=== PATIENT | male | born 1950 | race Caucasian/White ===

== ENCOUNTER 2025-04-05 06:18 | Day surgery (SDC) | payer MEDICARE, OTHER, SELFPAY ==
[2025-04-05 07:18] LABS: Glucose - Point of Care 127 mg/dl (70-99)
== END 2025-04-05 09:21 | disposition home or self-care (01) ==
LOC: GI 06:18
PROVIDERS: ATTENDING PHYSICIAN Surgery
DX: Z12.11 Encounter for screening for malignant neoplasm of colon (principal); K57.30 Diverticulosis of large intestine without perforation or abscess without bleeding; D12.0 Benign neoplasm of cecum; D12.4 Benign neoplasm of descending colon; Z86.0100 Personal history of colon polyps, unspecified; Z98.0 Intestinal bypass and anastomosis status
CPT/HCPCS: 45385; 45381; 45380; 82962; 88305

== ENCOUNTER 2025-04-19 14:08 | Observation (INO) | payer MEDICARE, OTHER, SELFPAY ==
[2025-04-19 11:42] VITALS: BP 157/79
[2025-04-19 11:58] LABS: Hematocrit 37.9 % (39.0-52.0); Hemoglobin 12.6 g/dL (13.0-18.0); Mean Corp Hgb Conc. 33.2 g/dL (33.0-37.0); Mean Corpuscular Volume 90.9 fL (80.0-94.0); Nucleated Red Blood Cells % 0 % (-); Platelet Count 217 10^3/uL (130-400); Red Cell Dist. Width 13.0 % (11.5-14.5)
[2025-04-19 12:05] LABS: INR 0.96; PT 13.3 Sec (11.4-14.6)
[2025-04-19 12:12] LABS: ALT (SGPT) 26 U/L (0-50); AST (SGOT) 21 U/L (17-59); Albumin 4.7 g/dl (3.5-5.0); Alkaline Phosphatase 45 U/L (38-126); Blood Urea Nitrogen 33 mg/dl (9-20); Calcium 9.6 mg/dl (8.4-10.2); Carbon Dioxide 27 mmol/L (22-30); Chloride 107 mmol/L (98-107); Glucose 127 mg/dl (70-99); Potassium 4.8 mmol/L (3.5-5.1); Sodium 141 mmol/L (135-145); Total Protein 7.0 g/dl (6.3-8.2); eGFR > 60.00
--- NOTE | 2025-04-19 12:36 | ED.GENMED ---
History of Present Illness
<Alma Rosa Trammell PA-C - Last Filed: 04/19/25 23:17>
General
Chief Complaint: Rectal Bleeding
Source: patient
Exam Limitations: none
Time Seen by Provider: 04/19/25 12:13
Nursing documentation reviewed up to this point in time: agreed with
History of Present Illness
History of Present Illness:
Patient is a 75-year-old male with history hypertension, hyperlipidemia, diabetes who presents to the emergency department for evaluation of rectal bleeding. Patient reports a few episodes of red/brown stool with bright red blood in toilet bowl
since last night. He denies any abdominal pain/cramping. He denies any lightheadedness, dizziness, weakness, or shortness of breath.
Of note�patient is currently 2 weeks s/p colonoscopy with multiple polyps removed. He contacted his GI doctor who performed colonoscopy, Dr. Kahn and was seen in office this morning. Given evidence of bleeding per rectum on antiplatelet
agents�she was referred to the emergency department for admission.
Patient states he last took his prasugrel this morning. He also takes a baby aspirin in the evening.
Past History
<Alma Rosa Trammell PA-C - Last Filed: 04/19/25 23:17>
Past History
ED Past Medical History: CAD, HTN and Hypercholesterolemia
Social History
Tobacco: Former smoker
Alcohol: None
Drug: None
Personal:
Review of Systems
<Alma Rosa Trammell PA-C - Last Filed: 04/19/25 23:17>
Review of Systems
Allergies reviewed?: Yes
All Other Systems: ROS reviewed and negative except as documented in HPI and ROS
Phy Exam
<Alma Rosa Trammell PA-C - Last Filed: 04/19/25 23:17>
Physical Exam
Physical Exam:
Vitals: Mildly hypertensive, otherwise vital sign stable. Afebrile
General: Patient is well appearing, no acute distress
Skin: Warm and dry, no rashes or lesions
Head: Normocephalic, atraumatic
Eyes: Sclera nonicteric.
Throat: Protecting airway
Neck: Normal ROM, no cervical spine tenderness, no meningismus
Cardiac: Regular rate and rhythm, no murmurs.
Pulm: Normal respiratory effort, no wheezes, rales, rhonchi heard on exam
Abdomen: Abdomen soft and nontender. No rebound or guarding
Rectal: No visualized external hemorrhoids. No stool in vault with minimal bright red blood present.
Extremities: No evidence of cyanosis or edema
Neuro: AAOx3. Grossly intact.
Psychiatric: Normal affect.
Course
<Alma Rosa Trammell PA-C - Last Filed: 04/19/25 23:17>
Orders/Labs/Results
Orders:
Orders
04/19/25 11:48
Type+Screen Urgent
Complete Blood Count/With Diff Urgent
Comprehensive Metabolic Panel Urgent
PT/INR [Prothrombin Time] Urgent
04/19/25 13:46
Admit/Transfer Patient As Directed
Co-Sign Provider:
Level of Care: Observation services
Assign to:: Medical/Surgical
Physician / Group: Marlyn Jeffers
Diagnosis: GI bleed
PRN Pain Medication Management As Directed
May give lesser potent ordered pain med per pt: Yes
preference::
Protocol:: Medication orders for pain may be administered in a
manner that supports deferring to patient preference
when the pt is:
- Requesting an ordered lesser potent pain medication.
Least to most potent pain medications are defined
as: acetaminophen < NSAID < tramadol < opioids
(morphine, oxycodone, hydromorphone).
- Requesting a lesser dose of the same medication IF
ORDERED.
- Requesting a less intrusive route of administration
if both routes are prescribed by the provider (PO <
IV).
04/19/25 13:47
Code Status As Directed
Resuscitation Status: Full Code
04/19/25 Dinner
Clear Liquid
At Your Request: Limited Participation
Does patient need a safe tray?: No
04/19/25 15:25
Dextrose 50%-Water [Dextrose 50% Syringe] 12.5 grams IV [id number] PRN
Glucagon [GlucaGen] 1 mg IM PRN PRN
Lorazepam [Ativan] 1 mg PO BIDPRN PRN anxiety
04/19/25 15:25
ColoRectal Surgery Consult Routine
Consulting Provider: Familia Kahn
Was physician already notified: Yes
Activity As Directed
Activity Level: Ambulate
Bedside Glucose Monitoring As Directed
Frequency: AC&HS
Additional Instructions:: Change to q6h if pt on TPN, tube feeding or not eating
INT (Intravenous Needle Therapy) As Directed
Comment: Place 2 IV catheters of the largest bore possible until stable
Orthostatic Vital Signs As Directed
Orthostatic VS Frequency: Now
Comment: then every four hours for twenty-four hours
Pneumatic Compression Sleeves As Directed
Type: Knee high
Vital Signs As Directed
Frequency: Per unit guidelines
Weight As Directed
Frequency: Once
Comment: on admission
Pulse Ox/spot Check [RESP] Routine
Quantity: 1
DX Deep Vein Thrombosis Video Routine
04/19/25 16:30
Insulin Aspart Corrective Low [Novolog Flexpen-Low Resistance] See Protocol SC AC
04/19/25 18:00
Atorvastatin [Lipitor] 40 mg PO QPM
Ferrous Sulfate [Feosol] 325 mg PO QPM
Lisinopril [Zestril] 2.5 mg PO QPM
04/19/25 20:00
Clobetasol Propionate [Clobetasol Propionate 0.05% Cream] See Dose Instructions TOPICAL BID
04/19/25 22:00
Melatonin 5 mg PO HS
04/20/25 06:00
Complete Blood Count/No Diff IN AM
Glycohemoglobin (HgbA1c) IN AM
04/20/25 08:00
Atenolol [Tenormin] 50 mg PO DAILY
Pantoprazole [Protonix] 20 mg PO DAILY
Abnormal Lab Results
04/19/25
11:48
RBC 4.17 L 10^6/uL
(4.70-6.10)
Hgb 12.6 L g/dL
(13.0-18.0)
Hct 37.9 L %
(39.0-52.0)
Lymphocytes % 20.0 L %
(20.5-51.1)
BUN 33 H mg/dl
(9-20)
Glucose 127 H mg/dl
(70-99)
04/19/25 11:48
04/19/25 11:48
Vital Signs
Initial and Last Documented VS:
Initial Vital Signs
Temp Pulse Resp BP Pulse Ox
97.9 F 78 16 157/79 98
04/19/25 11:42 04/19/25 11:42 04/19/25 11:42 04/19/25 11:42 04/19/25 11:42
Last Documented Vital Signs
Temp Pulse Resp BP Pulse Ox
98.0 F 70 16 153/76 100
04/19/25 16:28 04/19/25 16:28 04/19/25 16:28 04/19/25 16:28 04/19/25 16:44
<Juan Stokes MD - Last Filed: 04/19/25 13:06>
Orders/Labs/Results
Orders:
Orders
04/19/25 11:48
Type+Screen Urgent
Complete Blood Count/With Diff Urgent
Comprehensive Metabolic Panel Urgent
PT/INR [Prothrombin Time] Urgent
04/19/25 13:46
Admit/Transfer Patient As Directed
Co-Sign Provider:
Level of Care: Observation services
Assign to:: Medical/Surgical
Physician / Group: Marlyn Jeffers
Diagnosis: GI bleed
PRN Pain Medication Management As Directed
May give lesser potent ordered pain med per pt: Yes
preference::
Protocol:: Medication orders for pain may be administered in a
manner that supports deferring to patient preference
when the pt is:
- Requesting an ordered lesser potent pain medication.
Least to most potent pain medications are defined
as: acetaminophen < NSAID < tramadol < opioids
(morphine, oxycodone, hydromorphone).
- Requesting a lesser dose of the same medication IF
ORDERED.
- Requesting a less intrusive route of administration
if both routes are prescribed by the provider (PO <
IV).
04/19/25 13:47
Code Status As Directed
Resuscitation Status: Full Code
04/19/25 Dinner
Clear Liquid
At Your Request: Limited Participation
Does patient need a safe tray?: No
04/19/25 15:25
Dextrose 50%-Water [Dextrose 50% Syringe] 12.5 grams IV [id number] PRN
Glucagon [GlucaGen] 1 mg IM PRN PRN
Lorazepam [Ativan] 1 mg PO BIDPRN PRN anxiety
04/19/25 15:25
ColoRectal Surgery Consult Routine
Consulting Provider: Familia Kahn
Was physician already notified: Yes
Activity As Directed
Activity Level: Ambulate
Bedside Glucose Monitoring As Directed
Frequency: AC&HS
Additional Instructions:: Change to q6h if pt on TPN, tube feeding or not eating
INT (Intravenous Needle Therapy) As Directed
Comment: Place 2 IV catheters of the largest bore possible until stable
Orthostatic Vital Signs As Directed
Orthostatic VS Frequency: Now
Comment: then every four hours for twenty-four hours
Pneumatic Compression Sleeves As Directed
Type: Knee high
Vital Signs As Directed
Frequency: Per unit guidelines
Weight As Directed
Frequency: Once
Comment: on admission
Pulse Ox/spot Check [RESP] Routine
Quantity: 1
DX Deep Vein Thrombosis Video Routine
04/19/25 16:30
Insulin Aspart Corrective Low [Novolog Flexpen-Low Resistance] See Protocol SC AC
04/19/25 18:00
Atorvastatin [Lipitor] 40 mg PO QPM
Ferrous Sulfate [Feosol] 325 mg PO QPM
Lisinopril [Zestril] 2.5 mg PO QPM
04/19/25 20:00
Clobetasol Propionate [Clobetasol Propionate 0.05% Cream] See Dose Instructions TOPICAL BID
04/19/25 22:00
Melatonin 5 mg PO HS
04/20/25 06:00
Complete Blood Count/No Diff IN AM
Glycohemoglobin (HgbA1c) IN AM
04/20/25 08:00
Atenolol [Tenormin] 50 mg PO DAILY
Pantoprazole [Protonix] 20 mg PO DAILY
Abnormal Lab Results
04/19/25
11:48
RBC 4.17 L 10^6/uL
(4.70-6.10)
Hgb 12.6 L g/dL
(13.0-18.0)
Hct 37.9 L %
(39.0-52.0)
Lymphocytes % 20.0 L %
(20.5-51.1)
BUN 33 H mg/dl
(9-20)
Glucose 127 H mg/dl
(70-99)
04/19/25 11:48
04/19/25 11:48
Vital Signs
Initial and Last Documented VS:
Initial Vital Signs
Temp Pulse Resp BP Pulse Ox
97.9 F 78 16 157/79 98
04/19/25 11:42 04/19/25 11:42 04/19/25 11:42 04/19/25 11:42 04/19/25 11:42
Last Documented Vital Signs
Temp Pulse Resp BP Pulse Ox
98.0 F 70 16 153/76 100
04/19/25 16:28 04/19/25 16:28 04/19/25 16:28 04/19/25 16:28 04/19/25 16:44
<Alma Rosa Trammell PA-C - Last Filed: 04/19/25 23:17>
MDM/Problems Addressed
Differential Diagnosis Includes:
Not limited to: Postpolypectomy bleeding, diverticular bleeding, anal fissure, internal hemorrhoid, anemia, etc.
MDM/Problems Addressed:
75-year-old male with history CAD on prasugrel approximately 2 weeks s/p colonoscopy with polypectomy presenting with rectal bleeding. No associated abdominal or rectal pain, lightheadedness, fatigue, shortness of breath. He is hemodynamically
stable on arrival and afebrile. On exam, patient is well appearing and non-toxic. He�s alert and oriented without any focal neurologic deficits. Abdomen benign. Rectal exam does reveal very little bright red blood in vault without any obvious
external hemorrhoids.
Lab work obtained prior to my evaluation reveal a stable hemoglobin of 12.6.
Bleeding may be secondary to recent polypectomy. Possible diverticular bleeding or internal hemorrhoids. While patient has minimal amount of bleeding on exam currently and his hemodynamically stable, given he is on prasugrel and aspirin � will admit
for a hemoglobin trending and further monitoring.
I did discuss with colorectal surgeon, doctor Criss � will hold on CTA at this time.
Blood consent signed into chart, however, hemoglobin currently over threshold for transfusion.
Patient accepted to hospitalist service in stable condition for further management
Chronic conditions affecting care:
CAD on prasugrel, hypertension
Acute Exacerbation and/or Progression of Chronic Illness:
Acutely hypertensive
<Alma Rosa Trammell PA-C - Last Filed: 04/19/25 23:17>
*Pulse Oximetry
SaO2: 98
Oxygen Mode of Delivery: Room air
Patient hypoxic: no
*EKG
Interpreted by ED Provider?: NA
*Investigative Research Specialist Interpretation
Rate: Investigative Research Specialist- N/A
*Critical Care Note
Total Time (30-74mins, 75-104mins- exclusive of procedures): Not Applicable
<Alma Rosa Trammell PA-C - Last Filed: 04/19/25 23:17>
Patient Management
Discussion with other providers: Hospitalist and On Call (Case discussed with colorectal surgeon)
ED Attending Note
<Alma Rosa Trammell PA-C - Last Filed: 04/19/25 23:17>
-
Portions of this chart may have been created with voice recognition software.� Occasional wrong word or��sound alike� substitutions may have occurred due to the inherent limitations of voice recognition software.
<Juan Stokes MD - Last Filed: 04/19/25 13:06>
ED Attending Note
Patient seen and examined by attending physician: Yes
ED Attending Note:
I have seen and evaluated the patient with a [id number] encounter. I have spoken to the advance practicer provider and involved in the medical history, the physical exam, medical decision making.
Evaluation and management service: agree unless noted differently below.
Results interpretation: agree unless noted differently below.
Focused HPI: 75-year-old male with past medical history as noted presents to the ER for evaluation of rectal bleeding. Patient notably had colonoscopy [address] Kahn and had polyps resected. He says he had been having normal bowel
movements until today he noticed stool mixed with dark red blood x 2 episodes. Went to see GI doctor and was referred to the ER. He is on prasugrel reports last dose this morning.
Physical exam: Awake and alert not in distress. Hypertensive but otherwise normal vitals. Abdomen nontender. PA performed rectal exam�Hemoccult positive.
Medical Decision Makin-year-old male who is on prasugrel presents with rectal bleeding 2 weeks out from colonoscopy and polyp resection. He is hemodynamically stable. His hemoglobin is 12.6 stable (actually slightly higher than prior). Plan
to hold blood thinners, PA discussed with colorectal surgeon will admit for serial hemoglobins, clinically monitor. Hold on imaging at this point. PA discussed with hospitalist for admission.
Discharge Plan
Departure
Patient Disposition: Admit
Date of Disposition: 04/19/25
Time of Disposition: 13:03
Presentation/result/management discussed w/ accepting MD/DO: Hospitalist
Patient with high blood pressure during this ER visit?: Yes
Discharge Problem:
Rectal bleeding
Interventions
Interventions:
*Risk Screen - Suicide Last Done: 04/19/25 15:47
*General Assessment Last Done: 04/19/25 11:42
*Neglect/Abuse Screening Last Done: 04/19/25 11:42
*ED- Fall Risk Assessment Last Done: 04/19/25 12:22
*ED COVID-19 Vaccine History Last Done: 04/19/25 15:47
*ED Influenza Vaccine History Last Done: 04/19/25 11:44
*Nursing Disposition Last Done: 04/19/25 15:20
QQ-Suqouv-Mpjvdplgpi Assessment Last Done: 04/19/25 12:22
ED- Cardiac Assessment Last Done: 04/19/25 12:22
ED- Pulmonary Assessment Last Done: 04/19/25 12:22
Discharge Date and Time
Discharge Date/Time: 04/19/25 15:21
--- NOTE | 2025-04-19 13:12 | HPS.HSE ---
Addendum entered and electronically signed by Marlyn Jeffers MD 04/19/25 14:37:
This is an addendum to H&P written by Marichuy Clements on 04/19/2025. �Patient seen and examined independently with ASSET ANALYST.
75-year-old male past medical history of Meckel's diverticulum, diverticulitis with bowel perf s/p bowel resection, left kidney nodule, CAD status post stent 1 year ago, hypercholesteremia, GERD, hypertension, former smoker, presenting for maroon
colored rectal bleeding last night and bright colored bleeding today. �No abdominal pain.
Underwent colonoscopy 2 weeks ago with multiple polyps removed by Dr. Kahn.
Vital signs unremarkable.
Labs unremarkable. �Hemoglobin 12.6.
Patient with rectal bleeding after colonoscopy 2 weeks ago likely post polypectomy bleeding. �Hold ASA/ prasugrel. �Colorectal surgery consulted. �Consider CTA angiogram abdomen pelvis if persistent bleeding.
Original Note:
Family Physician
-
Family Physician: SHANKAR CARMEN PA-C
Chief Complaint
-
bloody stools
History of Present Illness
Patient is a 75-year-old male with past medical history significant for hypertension, hyperlipidemia, diabetes, CAD, GERD and diverticulitis who presented to [facility] ED for evaluation of bloody stools that started this morning. Patient had colonoscopy
with Dr. Kahn, two weeks ago with polyp removal and clip placement. Patient stated that this morning he had a maroon loose bowel movement. He reports taking himself to Dr. Kahn's office following the episode of maroon stools and he was then
referred to ED for evaluation and workup. Patient states he had a second episode after arriving here at hospital that was less maroon than previous but does note some brighter red blood with this episode. He denies any dizziness, shortness of breath
or palpitations.
Medical History
Past Medical History
Past Medical History: Reports Other
Additional Past Medical History:
hypertension
hyperlipidemia
diabetes
CAD
GERD
diverticulitis
Past Surgical History: Reports Other
Additional Past Surgical History:
sigmoidectomy 2013
cardiac cath with stent
reanastomosis sigmoid colon 09/2022
Social History
Tobacco: Former Smoker
Alcohol: None
Drug: None
Personal:
Living: With Family
Employment: Retired
Family History
Family History: Other (Mother: breast cancer () Father: lung cancer, CAD, IDDM () )
Allergies / Home Medications
Allergies reflects when Allergies were last updated in [facility].
Home Medications with original date entered in [facility]
Allergy/Medication List:
Allergies
Allergy/AdvReac Type Severity Reaction Status Date / Time
No Known Allergies Allergy Verified 04/19/25 11:45
Home Medications
atenolol 50 mg tablet 50 mg PO DAILY 10/13/13
lorazepam 1 mg tablet 1 mg PO BIDPRN PRN anxiety 10/13/13
ascorbic acid (vitamin C) 500 mg tablet (Vitamin C) 500 mg PO QPM 04/19/25
aspirin 81 mg chewable tablet 81 mg PO QPM 04/19/25
atorvastatin 40 mg tablet 40 mg PO QPM 04/19/25
clobetasol 0.05 % topical cream 1 applic topical BID eczema patches 04/19/25
ferrous sulfate 325 mg (65 mg iron) tablet (iron) 325 mg PO QPM 04/19/25
lisinopril 2.5 mg tablet 2.5 mg PO QPM 04/19/25
melatonin 5 mg tablet 5 mg PO HS Sleep 04/19/25
metformin 500 mg tablet,extended release 24 hr 500 mg PO BID@0800,1700 04/19/25
multivitamin 1 tab PO DAILY 04/19/25
omega 2-zfz-eam-fish oil 900 mg-1,400 mg capsule,delayed release 1 cap PO BID 04/19/25
pantoprazole 20 mg tablet,delayed release 20 mg PO DAILY 04/19/25
prasugrel HCl 5 mg tablet 5 mg PO DAILY 04/19/25
Review of Systems
-
History Source: Patient
Constitutional: Denies Fever or Chills
EENT: Denies Sore Throat
Respiratory: Denies Cough, Hemoptysis or Trouble Breathing
Cardiac: Denies Chest Pain, Diaphoresis, Palpitations or Syncope
Abdomen/GI: Reports Diarrhea and Bloody Stools; Denies Abdominal Pain, Nausea or Vomiting
: Denies Dysuria, Frequency or Urgency
Musculoskeletal: Denies Joint Pain
Skin: Denies Rash
Neurological: Denies Dizzy, Headache, Weakness or Numbness
Physical Exam
Vital Signs
Vital Signs
Temp Pulse Resp BP Pulse Ox
97.9 F 78 16 157/79 98
04/19/25 11:42 04/19/25 11:42 04/19/25 11:42 04/19/25 11:42 04/19/25 12:36
Physical Exam
General: Well Developed, Well Nourished, No Apparent Distress, Comfortable and Conversant
HEENT: NormoCephalic, Moist mucous membranes, PERRLA, Nose Appears Normal and Ears Appear Normal
Respiratory: Clear; No Wheezes, Rales, Rhonchi or Non Labored Respirations
Cardiac: S1/S2 and Regular Rhythm; No Murmur, Rub, Gallop or Peripheral Edema
GI: Soft, Non Tender, Non Distended and Normal Bowel Sounds
Musculoskeletal: No Clubbing, No Cyanosis and No Edema
Skin: Warm and IV/Catheter Site
Neuro: Awake and AO x 3
Psych: Calm and Intact Judgment/Insight
Laboratory Results
-
04/19/25 11:48
04/19/25 11:48
Laboratory Results
PT 13.3 Sec (11.4-14.6) 04/19/25 11:48
INR 0.96 04/19/25 11:48
Total Bilirubin 0.5 mg/dl (0.2-1.3) 04/19/25 11:48
AST 21 U/L (17-59) 04/19/25 11:48
ALT 26 U/L (0-50) 04/19/25 11:48
Alkaline Phosphatase 45 U/L (38-126) 04/19/25 11:48
Data Reviewed
-
Lab Data: Labs Reviewed by me (hgb 12.6, hct 37.9 )
Impression/Plan
-
IMPRESSION/PLAN:
#bloody stools
reports maroon loose stool x2 today, recent colonoscopy with Dr. Kahn 2 weeks with polypectomy and clip placement
hgb 12.6, hct 37.9
Hemoccult positive per ED note
blood consent obtained by ED, scanned to chart
- Admit to med/surg for observation
- Consult Colorectal
- trend H/H
- clear liquid diet
- hold aspirin and prasugrel
#hypertension
- continue atenolol, lisinopril
#hyperlipidemia
- continue atorvastatin
#diabetes
- AccuCheck
- AC & HS
- hold metformin while acutely ill
#CAD
- hold aspirin and prasugrel
#GERD
- continue pantoprazole
#anemia
- continue ferrous sulfate
#anxiety
- continue lorazepam
#diverticulitis
s/p sigmoidectomy
Code status: full code
DVT prophylaxis: SCDs
[2025-04-19 14:15] VITALS: BP 159/66
--- NOTE | 2025-04-19 14:18 | CM ---
chart reviewed [place] reviewed with patient
Met with patient at ED bedside
Lives with in a split home 5 [address] and 6 steps to bathroom
Independent with ADLs and ambulation
Drives
no DME
PCP Dr. Joasfat Angulo
RX plan yes
Pharmacy [facility]
no hx of VN nor SNF
DCP is to go home
can drive him home
CM to follow up with any dcp needs
--- NOTE | 2025-04-19 15:43 | CON.CRS ---
Consultation
-
Date/Time Consultation Requested: 04/19/2025
Date/Time Consultation Performed: 04/19/2025
Performing Provider: Criss
Reason for Consultation: Melena
Medical History
-
Chief Complaint: Dark stools
History of Present Illness:
75-year-old male who is now 2 weeks on chronic ASA and Effient for CAD/stents status post colonoscopy by me with removal of a number of polyps. Largest was 1.2 cm in the cecum and was removed and clipped. 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 5
other small polyps were noted and these were removed and came back tubular adenoma. A colorectal anastomosis from her prior sigmoidectomy was noted to be satisfactory. Plan was to repeat in 3 years. For the last 48 hours or so he has noticed dark
BMs and loose BMs. He can do my office today with the same concern and on SHANTELLE had melena with flecks of red. I recommended evaluation in the ER and potential observation in the hospital. Of note, he denied abdominal pain nausea vomiting fevers or
chills.
On evaluation in the ER he was afebrile and nontachycardic with reasonable BP. Blood work with hemoglobin 12.6. No imaging has been performed. Electrolytes and LFTs are reasonable.
Past Medical History
Past Medical History: CAD, GERD, HTN, Hypercholesterolemia and Other (Skin cancer)
Past Surgical History: Other (Coronary stent; urgent sigmoidectomy with Meckel's diverticulectomy in 2013)
Social History
Tobacco: Former Smoker
Alcohol: None
Personal:
Employment: Retired
Family History
Family History: Reviewed & Noncontributory
Allergies / Home Medications
Allergy/AdvReac Type Severity Reaction Status Date / Time
No Known Allergies Allergy Verified 04/19/25 11:45
�Medication �Instructions �Recorded �Confirmed �Type
atenolol 50 mg tablet 50 mg PO DAILY Blood Pressure 10/13/13 04/19/25 History
lorazepam 1 mg tablet 1 mg PO BIDPRN PRN anxiety 10/13/13 04/19/25 History
ascorbic acid (vitamin C) 500 mg 500 mg PO QPM Supplement 04/19/25 04/19/25 History
tablet (Vitamin C)
aspirin 81 mg chewable tablet 81 mg PO QPM Blood Clot 04/19/25 04/19/25 History
Prevention/Tx
atorvastatin 40 mg tablet 40 mg PO QPM High Cholesterol 04/19/25 04/19/25 History
clobetasol 0.05 % topical cream 1 applic topical BID eczema 04/19/25 04/19/25 History
patches
ferrous sulfate 325 mg (65 mg 325 mg PO QPM Supplement 04/19/25 04/19/25 History
iron) tablet (iron)
lisinopril 2.5 mg tablet 2.5 mg PO QPM Blood Pressure 04/19/25 04/19/25 History
melatonin 5 mg tablet 5 mg PO HS Sleep 04/19/25 04/19/25 History
metformin 500 mg tablet,extended 500 mg PO BID@0800,1700 Diabetes 04/19/25 04/19/25 History
release 24 hr
multivitamin 1 tab PO DAILY Supplement 04/19/25 04/19/25 History
omega 5-osr-lol-fish oil 900 1 cap PO BID Supplement 04/19/25 04/19/25 History
mg-1,400 mg capsule,delayed release
pantoprazole 20 mg tablet,delayed 20 mg PO DAILY Gastrointestinal 04/19/25 04/19/25 History
release Issue
prasugrel HCl 5 mg tablet 5 mg PO DAILY Blood Clot 04/19/25 04/19/25 History
Prevention/Tx
Review of Systems
-
A 10 point review of systems was completed, and was negative except as per HPI.
Physical Exam
Vital Signs
Temp 97.9 F 04/19/25 11:42
Pulse 77 04/19/25 14:15
Resp Rate 16 04/19/25 14:15
Blood pressure 159/66 04/19/25 14:15
SaO2 98 04/19/25 14:15
04/18/25 04/19/25 04/20/25
06:59 06:59 06:59
Actual Weight 74.843 kg
Lab Results / Allergies
04/19/25 11:48
WBC 8.2 10^3/uL (4.8-10.8) 04/19/25 11:48
Hgb 12.6 g/dL (13.0-18.0) L 04/19/25 11:48
Hct 37.9 % (39.0-52.0) L 04/19/25 11:48
Plt Count 217 10^3/uL (130-400) 04/19/25 11:48
Abs Immat Gran (auto) 0.0 10^3/uL (0-0.05) 04/19/25 11:48
Neutrophils % 70.0 % (42.2-75.2) 04/19/25 11:48
Allergy/AdvReac Type Severity Reaction Status Date / Time
No Known Allergies Allergy Verified 04/19/25 11:45
Physical Exam
General: Well Developed
HEENT: Normocephalic
Respiratory: Clear
Cardiac: S1/S2
GI: Soft, Non Tender and Non Distended
Rectal: Other (Deferred as in office earlier had dark loose stool with flecks of blood on SHANTELLE)
Skin: Warm
Neuro: AO x 3
Psych: Calm
Data Reviewed
-
Labs: Labs Reviewed by me and Discussed with Patient
Assessment / Plan
-
75-year-old male with probable post polypectomy bleed exacerbated by ASA and Effient. Agree with admission to the hospital for observation, clear liquid diet, serial hemoglobins, and holding the blood thinners. Hold on imaging or interventions at
this point in time. Consideration for CT angio versus colonoscopy if bleeding persists.
[2025-04-19 16:02] VITALS: BMI 24.0
[2025-04-19 16:22] VITALS: BP 153/76; BP 160/78; BP 164/77; PULSE 70; PULSE 73; PULSE 77
[2025-04-19 16:28] VITALS: BP 153/76
[2025-04-19] MEDS: LIPITOR 40 MG PO (17:12)
[2025-04-19] MEDS: ZESTRIL 2.5 MG PO (17:12)
[2025-04-19 17:17] LABS: Glucose - Point of Care 134 mg/dl (70-99)
--- NOTE | 2025-04-19 17:31 | PTCARENOTE ---
Received pt from ED, pt ambulatory to bed with no assistance. Orthos done, see documentation. Pt requested blood draw be pushed back to 17:30-18:00 to try to cluster care and promote sleep. Answered all pt's questions. Educated to notify staff if pt
has to have a BM. Pt oriented to room, warm blankets supplied, SCDs in place. No further complaints at this time, call nair within reach.
[2025-04-19 17:47] LABS: Hematocrit 35.1 % (39.0-52.0); Hemoglobin 11.8 g/dL (13.0-18.0)
--- NOTE | 2025-04-19 17:48 | VATNOTE ---
reviewed MD order for 2 large bore IVs until stable. While discussing this with patient, he requested to hold off on placing an additional IV until trending hemoglobin can be confirmed. Most recent hgb 12.6, discussed with patient the importance of
IV establishment in preparation for any potential blood transfusions given diagnosis of GI bleed. Patient verbalized understanding of this importance, and still requested to wait for additional IV placement. MD Jeffers made aware.
[2025-04-19 19:00] VITALS: BP 149/75; BP 159/75; BP 171/82; PULSE 69; PULSE 73; PULSE 85
[2025-04-19] MEDS: MELATONIN 5 MG PO (20:58)
[2025-04-19] MEDS: CLOBETASOL PROPIONATE 0.05% CREAM 1 APPLIC TOPICAL (21:00)
[2025-04-19 21:14] LABS: Glucose - Point of Care 124 mg/dl (70-99)
[2025-04-19 23:00] VITALS: BP 150/81; BP 152/86; BP 176/86; PULSE 74; PULSE 75; PULSE 85
[2025-04-19 23:55] LABS: Hematocrit 34.8 % (39.0-52.0); Hemoglobin 11.8 g/dL (13.0-18.0)
[2025-04-20 03:00] VITALS: BP 126/76; BP 146/71; BP 159/76; PULSE 77; PULSE 82; PULSE 90
--- NOTE | 2025-04-20 07:33 | W.PN.HOSP.TC ---
Addendum entered and electronically signed by Don Fernandez MD 04/20/25 13:58:
Attending�addendum:
I saw and evaluated the patient independently. I reviewed and discussed the resident�s note and agree with findings and plan as documented in the resident�s note.� patient seen and examined at bedside, denies any chest pain or shortness of breath,
no abdominal pain, no nausea, no vomiting, no diarrhea or constipation.
Physical�exam:
GENERAL : Patient is awake, alert, oriented x3
HEENT: Nonicteric sclerae, PERRLA, EOMI. Oropharynx clear. Moist mucous membranes. Conjunctivae appear well perfused.
CHEST: Chest wall is nontender.
HEART: Regular rate and rhythm without murmurs.
LUNGS: Clear to auscultation bilaterally.
ABDOMEN: Soft, positive bowel sounds, nontender, no organomegaly.
RECTAL: Deferred.
MUSCLES/EXTREMITIES: No abnormal range of motion, no swelling.SKIN: No rash, no excessive bruising, petechiae, or purpura.
NEUROLOGIC: Cranial nerves II-XII intact without motor/sensory deficit.
�
Assessment/plan:
Rectal bleeding
Post polypectomy.
Seen by general surgery.
Plan to be discharged and hold aspirin/Effient.
Repeat CBC after 1 week
Coronary artery disease status post stent in June 2023.
Follow-up with cardiology to resume antiplatelet
CODE STATUS: Full code
DVT prophylaxis:SCDs
Family communication: Discussed with at bedside
Disposition: Discharge home today
�
Total time spent on today�s encounter was 51 minutes which included time spent in counseling the patient/family regarding diagnosis and treatment plan as listed above, goals of care, and symptom management. Case was discussed with nursing staff,
specialists, and care coordinators/case management. All labs and imaging personally reviewed by me. Remainder the time spent in detailed review of previous records, lab data, imaging, and other medical provider documentation.
Original Note:
Today's Communication/Plan
-
- Discharge home today with plan for close cardiology follow-up
- Hold aspirin and prasugrel for 1 week
Assessment / Plan
Assessment / Plan
Patient is a 75-year-old male who is presenting to [facility] with maroon-colored stools and occasional bright red rectal bleeding for 48 hours.
#Bloody stools
- Probable post-polypectomy bleed exacerbated by ASA and prasugrel
- Colonoscopy 2 weeks ago with removal of 6 polyps, largest 1.2 cm
- Hold aspirin and prasugrel
- GI consulted
#CAD
- Hold aspirin and prasugrel
- S/p stent placement June 2023
- Patient has been taking aspirin and prasugrel daily for greater than 1 year
#Hypertension
- Continue atenolol, lisinopril
#Hyperlipidemia
- Continue atorvastatin
#Diabetes
- Accu-Chek
- Can restart metformin
#GERD
- Continue omeprazole
#Anemia
- Continue ferrous sulfate
#Anxiety
- Continue lorazepam
#Diverticulitis
-S/p sigmoidectomy
CODE STATUS: Full code
DVT PPx: SCDs
Anticipated Discharge: Today
Subjective/Interval History
-
Date of Service: April 20, 2025
Patient seen this morning at the bedside. Patient is feeling well. Patient notes that he has had maroon-colored stools with occasional bright red blood after using the bathroom for the last few days. Patient has had 3 bowel movements in the last
24 hours, which he describes as formed but loose. Patient notes a slight headache this morning. Patient denies chest pain, shortness of breath, nausea, vomiting, diarrhea, difficulty with urination. Patient expressed that he would like to go home
today if possible.
Objective Data
-
Labs:
Laboratory Results
04/19/25 04/20/25
23:45 06:53
WBC Pending
Hgb 11.8 L Pending
Hct 34.8 L Pending
Plt Count Pending
Vital Signs:
Vital Signs
Temp Pulse Resp BP Pulse Ox
97.6 F 70 16 153/76 98
04/20/25 03:00 04/19/25 16:28 04/20/25 03:00 04/19/25 16:28 04/20/25 03:00
Review of Systems
-
History Source: Patient
Constitutional: Reports No Symptoms
EENT: Reports No Symptoms Reported
Respiratory: Reports No Symptoms
Cardiac: Reports No Symptoms
Abdomen/GI: Reports Bloody Stools (Maroon with occasional bright red blood.)
Genitourinary: Reports No Symptoms
Musculoskeletal: Reports No Symptoms
Skin: Reports No Symptoms
Neuro: Reports Headache (Mild)
Endocrine: Reports No Symptoms
Hematologic / Lymphatic: Reports No Symptoms
Allergy / Immunology: Reports No Symptoms
Physical Exam
-
General: Well Developed, Well Nourished, No Apparent Distress and Comfortable
HEENT: Normocephalic and Atraumatic
Respiratory: Clear to Auscultation
Cardiac: Regular Rhythm
GI: Soft, Nontender and Nondistended
Musculoskeletal: No Edema
Skin: Warm and Dry
Neuro: Awake, Alert and Oriented
Psych: Calm
[2025-04-20 07:35] LABS: Glucose - Point of Care 137 mg/dl (70-99)
[2025-04-20 08:03] VITALS: BP 182/82
[2025-04-20 08:28] LABS: Hematocrit 35.6 % (39.0-52.0); Hemoglobin 11.7 g/dL (13.0-18.0); Mean Corp Hgb Conc. 32.9 g/dL (33.0-37.0); Mean Corpuscular Volume 89.0 fL (80.0-94.0); Platelet Count 180 10^3/uL (130-400); Red Cell Dist. Width 13.0 % (11.5-14.5)
[2025-04-20] MEDS: PROTONIX 20 MG PO (09:25)
[2025-04-20] MEDS: TENORMIN 50 MG PO (09:25)
[2025-04-20] MEDS: CLOBETASOL PROPIONATE 0.05% CREAM 1 APPLIC TOPICAL (09:30)
[2025-04-20 09:32] VITALS: BP 176/83
[2025-04-20] MEDS: TYLENOL 650 MG PO (10:36)
[2025-04-20 10:47] VITALS: BP 162/80; BP 173/81; BP 183/80; PULSE 68; PULSE 70; PULSE 73
[2025-04-20 11:56] LABS: Glucose - Point of Care 170 mg/dl (70-99)
--- NOTE | 2025-04-20 12:11 | W.PN.CRS1 ---
Today's Communication / Plan
-
As below
Assessment/Plan
-
75-year-old male with PMH of CAD (s/p stent 06/2023, on aspirin and Effient; per patient, was told he does not need to continue DAPT 1 year after stent placement, but patient continued this for cardiac protection), GERD, HTN, HLD who underwent
colonoscopy on 04/05, had 6 polyps removed, all were less than 3 mm except a 1.2 cm cecal polyp that was removed and clipped; developed maroon stools for the last 1 to 2 days
AFVSS
Hb 11.7 from 11.8
� Due to his improvement in BMs and stable Hb, okay to start low residue diet and discharge if tolerating
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
medications, especially in the setting of this GI bleed
�Overall, patient likely had a bleeding event related to the colonoscopy; after he completely heals from the polypectomies, he should be at low risk for GI bleeding moving forward; therefore, if the elementary school reading teacher deems that he is at high risk and
needs to continue DAPT, this should be fine after 5-7 days
� Discussed the above with hospitalist
Subjective Data
Subjective Data
Date of Service: April 20, 2025
No overnight events. Had another BM today that was less maroon and more brown stool. No bright red blood.
Denies abdominal pain.
Denies nausea/vomiting. Tolerating clear liquids.
+voiding
Pt is OOB.
Objective Data
-
Vital Signs
Temp Pulse Resp BP Pulse Ox
98.5 F 79 18 176/83 100
04/20/25 10:47 04/20/25 09:32 04/20/25 10:47 04/20/25 09:32 04/20/25 10:47
Intake & Output
04/19/25 04/20/25 04/21/25
06:59 06:59 06:59
Other:
Number of approximated MODERATE 1
amounts of urine
Lab Results
04/20/25 06:53
04/19/25 11:48
Physical Exam
-
General: No Acute Distress and AOx3
Abdomen: Soft, Non Distended, Non Tender, No Guarding and No Rebound
Skin: Warm and Dry
[2025-04-20 12:13] LABS: Glycohemoglobin (HgbA1c) 6.1 % (4.0-5.9)
--- NOTE | 2025-04-20 13:15 | W.DCSUMMARY ---
Addendum entered and electronically signed by Don Fernandez MD 04/20/25 13:59:
Attending�addendum:
I saw and evaluated the patient independently. I reviewed and discussed the resident�s note and agree with findings and plan as documented in the resident�s note.� patient seen and examined at bedside, denies any chest pain or shortness of breath,
no abdominal pain, no nausea, no vomiting, no diarrhea or constipation.
Physical�exam:
GENERAL : Patient is awake, alert, oriented x3
HEENT: Nonicteric sclerae, PERRLA, EOMI. Oropharynx clear. Moist mucous membranes. Conjunctivae appear well perfused.
CHEST: Chest wall is nontender.
HEART: Regular rate and rhythm without murmurs.
LUNGS: Clear to auscultation bilaterally.
ABDOMEN: Soft, positive bowel sounds, nontender, no organomegaly.
RECTAL: Deferred.
MUSCLES/EXTREMITIES: No abnormal range of motion, no swelling.SKIN: No rash, no excessive bruising, petechiae, or purpura.
NEUROLOGIC: Cranial nerves II-XII intact without motor/sensory deficit.
�
Assessment/plan:
Rectal bleeding
Post polypectomy.
Seen by general surgery.
Plan to be discharged and hold aspirin/Effient.
Repeat CBC after 1 week
Coronary artery disease status post stent in June 2023.
Follow-up with cardiology to resume antiplatelet
CODE STATUS: Full code
DVT prophylaxis:SCDs
Family communication: Discussed with at bedside
Disposition: Discharge home today
�
Total time spent on today�s encounter was 51 minutes which included time spent in counseling the patient/family regarding diagnosis and treatment plan as listed above, goals of care, and symptom management. Case was discussed with nursing staff,
specialists, and care coordinators/case management. All labs and imaging personally reviewed by me. Remainder the time spent in detailed review of previous records, lab data, imaging, and other medical provider documentation.
Original Note:
Documented by User: Bing Capellan DO, Resident 04/20/25 13:32
Discharge Summary
Discharge Data
Date of Admission: 04/19/25
Date of Discharge: 04/20/25
-
Pending Results: No
Hospital Course
Primary diagnosis: Rectal bleeding
Secondary diagnosis: CAD s/p stent placement 2023, diverticulitis with H/o perforation of bowel s/p resection, hyperlipidemia, GERD, hypertension
Hospital course:
Patient is a 75-year-old male who presented to [facility] with maroon stools for the last 48 hours. Patient underwent a colonoscopy on 04/05, had 6 polyps removed one of which was 1.2 cm cecal polyp that was removed and clipped. In the ED patient's
vitals were unremarkable, hemoglobin was 12.1. Colorectal surgery was consulted and advised admission for monitoring of hemoglobin and bleeding. Overnight, patient had serial H&H ordered: 11.8, 11.8, 11.7. This morning patient had improvement in
bowel movements and a stable hemoglobin. Colorectal surgery suspects that the bleeding event was related to the polypectomy in the setting of DAPT. Patient is currently holding aspirin and prasugrel and will continue to hold both for 5 to 7 days,
with close follow-up with his director post. Patient is > 1 year out from stent placement. Patient was feeling well this morning and expressed being ready for discharge today.
Patient will be discharged home.
Discharge Plan
-
Patient Disposition: Home (Routine Discharge)
Discharge Diagnosis/Procedures: Rectal bleed
Condition: Good
Diet: As tolerated, Low Fat and Low Cholesterol
Activity: No restrictions
Driving Restrictions: As prior to admission
Bathing Restrictions: None
Activity Restrictions/Additional Instructions:
Please make appointment with your director post within one week of discharge to discuss restarting aspirin and prasugrel
Referrals:
Familia Kahn MD [Active, ColoRectal]
Josafat Angulo PA-C [Family Provider]
Prescriptions:
New
(DME) Complete Blood Count
See Rx Instructions .Route .MEDSUPPLY Qty: 1 0RF
Rx Instructions:
to be done after one week
Diagnosis: anemia
Continued
lorazepam 1 MG tablet
1 mg PO BIDPRN PRN (Reason: anxiety)
atenolol 50 MG tablet
50 mg PO DAILY
multivitamin Tablet
1 tab PO DAILY
atorvastatin 40 mg tablet
40 mg PO QPM
clobetasol 0.05 % cream
1 applic TOPICAL BID
pantoprazole 20 mg tablet,delayed release (DR/EC)
20 mg PO DAILY
ascorbic acid (vitamin C) [Vitamin C] 500 mg Tablet
500 mg PO QPM
ferrous sulfate [iron] 325 mg (65 mg iron) Tablet
325 mg PO QPM
metformin 500 mg tablet extended release 24 hr
500 mg PO BID@0800,1700
lisinopril 2.5 mg tablet
2.5 mg PO QPM
melatonin 5 mg Tablet
5 mg PO HS
omega 6-zpa-wdh-fish oil 900-1,400 mg Capsule,Delayed Release(Dr/Ec)
1 cap PO BID
Held
aspirin 81 mg Tablet,Chewable
81 mg PO QPM
Hold Instructions: hold for 1 week and follow up with cardiology within one week to discuss restarting
prasugrel HCl 5 mg tablet
5 mg PO DAILY
Hold Instructions: hold for 1 week and follow up with cardiology within one week to discuss restarting
Discharge Orders:
Discharge Patient (As Directed); Ordered 04/20/25
Ordered By: Don Fernandez
Discharge Date and Time
Discharge Date/Time: 04/20/25 13:21
Print Language: SAUDI ARABIAN

Documented by User: Don Fernandez MD 04/20/25 13:59
Discharge Summary
Discharge Data
Date of Admission: 04/19/25
Date of Discharge: 04/20/25
Discharge Plan
-
Patient Disposition: Home (Routine Discharge)
Discharge Diagnosis/Procedures: Rectal bleed
Condition: Good
Diet: As tolerated, Low Fat and Low Cholesterol
Activity: No restrictions
Driving Restrictions: As prior to admission
Bathing Restrictions: None
Activity Restrictions/Additional Instructions:
Please make appointment with your director post within one week of discharge to discuss restarting aspirin and prasugrel
Referrals:
Familia Kahn MD [Active, ColoRectal]
Josafat Angulo PA-C [Family Provider]
Prescriptions:
New
(DME) Complete Blood Count
See Rx Instructions .Route .MEDSUPPLY Qty: 1 0RF
Rx Instructions:
to be done after one week
Diagnosis: anemia
Continued
lorazepam 1 MG tablet
1 mg PO BIDPRN PRN (Reason: anxiety)
atenolol 50 MG tablet
50 mg PO DAILY
multivitamin Tablet
1 tab PO DAILY
atorvastatin 40 mg tablet
40 mg PO QPM
clobetasol 0.05 % cream
1 applic TOPICAL BID
pantoprazole 20 mg tablet,delayed release (DR/EC)
20 mg PO DAILY
ascorbic acid (vitamin C) [Vitamin C] 500 mg Tablet
500 mg PO QPM
ferrous sulfate [iron] 325 mg (65 mg iron) Tablet
325 mg PO QPM
metformin 500 mg tablet extended release 24 hr
500 mg PO BID@0800,1700
lisinopril 2.5 mg tablet
2.5 mg PO QPM
melatonin 5 mg Tablet
5 mg PO HS
omega 0-xur-oph-fish oil 900-1,400 mg Capsule,Delayed Release(Dr/Ec)
1 cap PO BID
Held
aspirin 81 mg Tablet,Chewable
81 mg PO QPM
Hold Instructions: hold for 1 week and follow up with cardiology within one week to discuss restarting
prasugrel HCl 5 mg tablet
5 mg PO DAILY
Hold Instructions: hold for 1 week and follow up with cardiology within one week to discuss restarting
Discharge Orders:
Discharge Patient (As Directed); Ordered 04/20/25
Ordered By: Don Fernandez
Discharge Date and Time
Discharge Date/Time: 04/20/25 13:21
Print Language: SAUDI ARABIAN
--- NOTE | 2025-04-20 13:15 | CM ---
Discharge home today, no CM needs
Spouse will transport home
--- NOTE | 2025-04-20 13:26 | PTCARENOTE ---
Received patient this am AAOx3. Pt had one black stool this am. Drs. made aware. Tolerated clear liquids an low residue diet. B/P 176-[address] Ochoa made aware. Pt states ' that his B/P is always higher in the hospital'. Offered
no complaints. Made patient comfortable. Cont to assess patient status.
== END 2025-04-20 13:21 | disposition home or self-care (01) ==
LOC: 4 EAST ACU 14:08
PROVIDERS: Nurse Practitioner Family; ADMITTING PHYSICIAN Hospitalist; ATTENDING PHYSICIAN General Practice; CONSULT PHYSICIAN Surgery; EMERGENCY PHYSICIAN Emergency Medicine; FAMILY PHYSICIAN Physician Assistant Medical
DX: I10 Essential (primary) hypertension (principal); E78.00 Pure hypercholesterolemia, unspecified; E11.9 Type 2 diabetes mellitus without complications; I25.10 Atherosclerotic heart disease of native coronary artery without angina pectoris; K21.9 Gastro-esophageal reflux disease without esophagitis; K62.5 Hemorrhage of anus and rectum; D64.9 Anemia, unspecified; F41.9 Anxiety disorder, unspecified; K57.30 Diverticulosis of large intestine without perforation or abscess without bleeding; Z79.02 Long term (current) use of antithrombotics/antiplatelets; Z79.82 Long term (current) use of aspirin; Z79.84 Long term (current) use of oral hypoglycemic drugs; Z87.891 Personal history of nicotine dependence; Z79.899 Other long term (current) drug therapy; Z95.5 Presence of coronary angioplasty implant and graft
CPT/HCPCS: 80053; 82962; 83036; 85014; 85018; 85025; 85027; 85610; 86850; 86900; 86901; 99285; G0378